=== PATIENT | female | born 2000 | race Two or more races ===

== ENCOUNTER 2024-05-27 20:22 | Emergency (ER) | payer MEDICAID ==
[~2024-05-27] VITALS: Ht 162.6 cm; Wt 83.7 kg
[2024-05-27 20:30] VITALS: O2SAT 99
[2024-05-27] MEDS: TETANUS, DIPHTHERIA, PERTUSSIS VAC/PF 0.5ML (>10YR OLD) IM ONE (22:40)
[2024-05-27 22:47] VITALS: BP 119/74; PULSE 80; RESP 18; TEMP 36.9; O2SAT 99
== END 2024-05-27 22:48 | disposition home or self-care (01) ==
LOC: ER 20:22
DX: S60.511A Abrasion of right hand, initial encounter (principal); W25.XXXA Contact with sharp glass, initial encounter; Y93.89 Activity, other specified; Y92.89 Other specified places as the place of occurrence of the external cause; Y99.8 Other external cause status
CPT/HCPCS: 73130; 90715; 99283

== ENCOUNTER 2024-08-08 22:52 | Emergency (ER) | payer MEDICAID ==
[~2024-08-08] VITALS: Ht 160 cm; Wt 77.0 kg
[2024-08-08 23:09] VITALS: O2SAT 98
[2024-08-09 00:28] VITALS: BP 117/78; PULSE 76; RESP 18; TEMP 36.7; O2SAT 99
[2024-08-09 00:30] LABS: MONOTEST NEGATIVE (NEGATIVE)
== END 2024-08-09 00:30 | disposition home or self-care (01) ==
LOC: ER 22:52
DX: B27.90 Infectious mononucleosis, unspecified without complication (principal)
CPT/HCPCS: 86308; 99283